=== PATIENT | male | born 1980 | race Caucasian/White ===

== ENCOUNTER 2023-04-21 06:51 | Emergency (ER) | payer MEDICAID ==
[~2023-04-21] VITALS: Ht 170.2 cm; Wt 79.4 kg
[2023-04-21 07:43] VITALS: BP 123/79; TEMP 98.1
[2023-04-21] MEDS ORDERED: NAPR-1164 PO (08:58)
[2023-04-21 09:11] VITALS: O2SAT 98
== END 2023-04-21 09:12 | disposition home or self-care (01) ==
LOC: ER 07:27
DX: M25.572 Pain in left ankle and joints of left foot (principal); Z98.890 Other specified postprocedural states
CPT/HCPCS: 73610-TC; 73630-TC